=== PATIENT | female | born 1950 | race Caucasian/White ===

== ENCOUNTER 2019-08-27 09:43 | Emergency (ER) | payer SELFPAY ==
--- NOTE | 2019-08-27 09:58 | ED ---
Lower Extremity - HPI Summary HPI Summary: This pt is a 68 y/o female presenting to [facility] via EMS c/o right knee pain s/p mechanical fall today. Pt reports she was walking from her car to her office at [facility] this morning when she slipped on ice and fell on her right knee. Denies head strike or LOC. Pt notes her pain is located on her right knee cap and has decreased ROM of right knee secondary to pain. Denies neck pain, hip pain, back pain. Her pain is currently rated 4/10 in severity. PMHx: left leg fracture. - History of Current Complaint Chief Complaint: EDExtremityLower Stated Complaint: FALL RIGHT KNEE PAIN Time Seen by Provider: 08/27/19 09:52 Hx Obtained From: Patient Mechanism Of Injury: Blunt Trauma, Fall From A Standing Position Onset of Pain: Immediate Onset/Duration: Still Present Severity Currently: Moderate Pain Intensity: 4 Pain Scale Used: 0-10 Numeric Timing: Constant Location: Is Discrete @ - right knee Associated Signs And Symptoms: Positive: Negative, Knee Pain - right Aggravating Factor(s): Nothing Alleviating Factor(s): Nothing - Allergies/Home Medications Allergies/Adverse Reactions: Allergies Allergy/AdvReac Type Severity Reaction Status Date / Time No Known Allergies Allergy Verified 08/27/19 09:47 PMH/Surg Hx/FS Hx/Imm Hx Endocrine/Hematology History: Denies: Hx Diabetes Cardiovascular History: Denies: Hx Hypertension Musculoskeletal History: Reports: Hx of Fracture(s) - left leg - Surgical History Surgical History: Yes Surgery Procedure, Year, and Place: left leg surgery Infectious Disease History: No Infectious Disease History: Denies: Traveled Outside the [place] in Last 30 Days - Family History Known Family History: Positive: Cardiac Disease - mother and father with fatal CHF Family History: Brother with DM and alzheimer's - Social History Alcohol Use: Occasionally Substance Use Type: Reports: None Smoking Status (MU): Never Smoked Tobacco Review of Systems Negative: Fever, Chills Musculoskeletal: Other - POSITIVE: right knee pain Positive: Decreased ROM - right knee. Negative: Other - NEGATIVE: neck pain, hip pain, back pain Negative: Headache All Other Systems Reviewed And Are Negative: Yes Physical Exam - Summary Physical Exam Summary: GENERAL: Patient is a well-developed and nourished female who is lying comfortable in the stretcher. Patient is not in any acute respiratory distress. HEAD AND FACE: No signs of trauma. No ecchymosis, hematomas or skull depressions. No sinus tenderness. EYES: PERRLA, EOMI x 2, No injected conjunctiva, no nystagmus. EARS: Hearing grossly intact. Ear canals and tympanic membranes are within normal limits. MOUTH: Oropharynx within normal limits. NECK: Supple, trachea is midline, no adenopathy, no JVD, no carotid bruit, no c- spine tenderness, neck with full ROM. CHEST: Symmetric, no tenderness at palpation LUNGS: Clear to auscultation bilaterally. No wheezing or crackles. CVS: Regular rate and rhythm, S1 and S2 present, no murmurs or gallops appreciated. ABDOMEN: Soft, non-tender. No signs of distention. No rebound no guarding, and no masses palpated. Bowel sounds are normal. EXTREMITIES: RLE: decreased ROM on right knee. No deformity. Good pulses. Good capillary refill. NEURO: Alert and oriented x 3. No acute neurological deficits. Speech is normal and follows commands. SKIN: Dry and warm Triage Information Reviewed: Yes Vital Signs On Initial Exam: Initial Vitals Temp Pulse Resp BP Pulse Ox 99 F 84 18 184/91 93 08/27/19 09:48 08/27/19 09:48 08/27/19 09:48 08/27/19 09:48 08/27/19 09:48 Vital Signs Reviewed: Yes Procedures - Sedation Patient Received Moderate/Deep Sedation with Procedure: No Diagnostics - Vital Signs Vital Signs Temp Pulse Resp BP Pulse Ox 08/27/19 09:48 99 F 84 18 184/91 93 - Laboratory Lab Statement: Any lab studies that have been ordered have been reviewed, and results considered in the medical decision making process. - Radiology Right knee XR Radiology Interpretation Completed By: Radiologist Summary of Radiographic Findings: IMPRESSION: Transversely oriented complex fracture through the patella with [address] Randall has reviewed this report. - CT Right lower extremity CT CT Interpretation Completed By: Radiologist Summary of CT Findings: IMPRESSION: #. Comminuted intra-articular fracture of the patella with dominant transverse fracture. plane at the midpole and significant comminution of the inferior pole segment. #. Up to 2 cm cephalocaudal distraction between the superior and inferior fracture. fragments. Associated laxity in contour of the quadriceps and patellar tendons. #. 2.5 x 1.6 x 1.1 cm significantly rotated fracture fragment intervenes between the. remaining superior and inferior fragments of the displaced fracture. #. Negative for fracture of the visualized femur, tibia, or fibula. Bone density appears. decreased throughout. #. Associated lipohemarthrosis and anterior subcutaneous tissue plane infiltrative. hematoma. #. Suggestion of a solitary punctate focus of subcutaneous emphysema anteriorly; correlate for anterior soft tissue laceration. No conspicuous foreign body evident. Dr. Randall has reviewed this report. Lower Extremity Course/Dx - Course Assessment/Plan: This pt is a 68 y/o female presenting to [facility] via EMS c/o right knee pain s/p mechanical fall today. Pt reports she was walking from her car to her office at [facility] this morning when she slipped on ice and fell on her right knee. Denies head strike or LOC. Pt notes her pain is located on her right knee cap and has decreased ROM of right knee secondary to pain. Denies neck pain, hip pain, back pain. Her pain is currently rated 4/10 in severity. Patient declined pain medications. X-ray of the right knee impression: Positive patellar fracture. I discussed the case with and Dr. Yao from orthopedics. He recommends for the patient to get a knee CT and place the patient in a knee immobilizer as well as crutches. Patient will be discharged home with follow-up from orthopedics tomorrow. Patient was instructed to return to the emergency department if she develops increasing pain , swelling, or any other symptoms. She understands and agrees. - Diagnoses Differential Diagnosis/HQI/PQRI: Positive: Contusion, Fracture (Closed), Sprain , Strain Provider Diagnoses: Patellar fracture - Physician Notifications Discussed Care Of Patient With: Freddy Yao Time Discussed With Above Provider: 12:33 Instructed by Provider To: Other - Discussed with Dr. Yao, orthopedist, who recommends obtaining a CT, placing a knee immobilizer, and discharging the pt home with follow up tomorrow at his office. Discharge ED - Sign-Out/Discharge Documenting (check all that apply): Patient Departure - Discharge home - Discharge Plan Condition: Stable Disposition: HOME Prescriptions: HYDROcodone/ACETAMIN 5-325 MG* [[place] 5-325 TAB*] 1 tab PO Q6H PRN #10 tab MDD 4 PRN Reason: Pain - Moderate Patient Education Materials: Patellar Fracture (ED) Referrals: Cindy Ward MD [Primary Care Provider] - Freddy Yao MD [Medical Doctor] - Additional Instructions: Follow up with Dr. Yao, orthopedist, tomorrow. FOLLOW UP WITH YOUR PRIMARY CARE PROVIDER IN 2-3 DAYS. RETURN TO THE EMERGENCY DEPARTMENT FOR ANY WORSENING OR NEW SYMPTOMS. - Billing Disposition and Condition Condition: STABLE Disposition: Home - Attestation Statements Document Initiated by Lulúibe: Yes Documenting Scribe: Emely Steward Provider For Whom Lulúibe is Documenting (Include Credential): Alen Randall MD Scribe Attestation: IEmely, scribed for Alen Randall MD on 08/28/19 at 1840. Scribe Documentation Reviewed: Yes Provider Attestation: The documentation as recorded by the Emely sarah accurately reflects the service I personally performed and the decisions made by me, Alen Randall MD Status of Scribe Document: Viewed
[2019-08-27] MEDS ORDERED: HYDROcodone/ACETAMIN 5-325 MG* 1 TAB PO ONE (14:16)
[2019-08-27 14:35] VITALS: BP 157/110
== END 2019-08-27 14:34 | disposition home or self-care (01) ==
LOC: ED 09:43
DX: S82.041A Displaced comminuted fracture of right patella, initial encounter for closed fracture (principal); W00.0XXA Fall on same level due to ice and snow, initial encounter; Y92.9 Unspecified place or not applicable
CPT/HCPCS: 99283

== ENCOUNTER → 2019-08-29 13:43 | Day surgery (SDC) | payer OTHER ==
[~2019-08-29 13:43] MED LIST: Buffered Lidocaine 1% SYRIN* 1 ML/SYRINGE INTRADERM ONE; Dexamethasone IV* 4 MG/ML 1 ML (4 MG) ONE; Dexamethasone TAB* 4 MG PO ONE; Famotidine IV* 10 MG/ML 2 ML (20 mg) IV ONE; Famotidine IV* 10 MG/ML 2 ML (20 mg) ONE; Lactated Ringers 1000 ML Bag* 1,000 ML IV SCH; Ondansetron ODT TAB* 4 MG ONE; Ondansetron ODT TAB* 4 MG PO ONE; ceFAZolin 2 GM PREMIX in ORs 2 GM/50 ML BAG ONE
[2019-08-29 14:47] VITALS: BP 169/96
== END | disposition home or self-care (01) ==
LOC: OR 13:43
PROVIDERS: ATTEND Orthopaedic Surgery
DX: S82.001A Unspecified fracture of right patella, initial encounter for closed fracture (principal); Z53.8 Procedure and treatment not carried out for other reasons; X58.XXXA Exposure to other specified factors, initial encounter; Y92.9 Unspecified place or not applicable
CPT/HCPCS: A9270-GY; J0690; J1100

== ENCOUNTER 2019-09-04 07:44 | Day surgery (SDC) | payer OTHER ==
[~2019-09-04 07:44] MED LIST changes: +Dexamethasone IV* 4 MG/ML 1 ML (4 MG) IV SLOW PU ONE; -Dexamethasone IV* 4 MG/ML 1 ML (4 MG) ONE; -Dexamethasone TAB* 4 MG PO ONE; -Famotidine IV* 10 MG/ML 2 ML (20 mg) ONE; -Ondansetron ODT TAB* 4 MG ONE; -Ondansetron ODT TAB* 4 MG PO ONE; +Scopolamine 1.5 mg* PATCH TRANSDERM ONE; -ceFAZolin 2 GM PREMIX in ORs 2 GM/50 ML BAG ONE
[2019-09-04] MEDS ORDERED: ceFAZolin 2 GM PREMIX in ORs 2 GM/50 ML BAG ONE (08:12)
[2019-09-04] MEDS ORDERED: Dexamethasone IV* 4 MG/ML 1 ML (4 MG) ONE (08:12)
[2019-09-04] MEDS ORDERED: Scopolamine 1.5 mg* PATCH ONE (08:12)
[2019-09-04] MEDS ORDERED: Famotidine IV* 10 MG/ML 2 ML (20 mg) ONE (08:12)
[2019-09-04] MEDS ORDERED: fentaNYL* 50 MCG/ML 2 ML VIAL (100 MCG VIAL) ONE ×3 (10:48→12:53)
[2019-09-04] MEDS ORDERED: Lidocaine 2% PF * 5 ML VIAL ONE (10:48)
[2019-09-04] MEDS ORDERED: Midazolam* 1 MG/ML 2 ML VIAL (2 MG) ONE (10:48)
[2019-09-04] MEDS ORDERED: KETAMINE HCL* 50 MG/ML 10 ML VIAL ONE (11:03)
[2019-09-04] MEDS ORDERED: Bupivacaine 0.5%* 50 ML MDV VIAL ONE (11:29)
[2019-09-04] MEDS ORDERED: Naloxone* 0.4 MG/ML 1 ML VIAL IV PRN (11:31)
[2019-09-04] MEDS ORDERED: HYDROcodone/ACETAMIN 5-325 MG* 1 TAB PO PRN (11:31)
[2019-09-04] MEDS ORDERED: PROCHLORPERAZINE INJ 5 MG/ML 2 ML VIAL IV PRN (11:31)
[2019-09-04] MEDS ORDERED: Ondansetron INJ* 2 MG/ML VIAL ONE (11:49)
[2019-09-04] MEDS: fentaNYL* 50 MCG/ML 2 ML VIAL (100 MCG VIAL) IV PRN ×4 (12:25→13:29)
[2019-09-04] MEDS ORDERED: Labetalol IV* 5 MG/ML 20 ML VIAL ONE (12:41)
[2019-09-04] MEDS: Labetalol IV* 5 MG/ML 20 ML VIAL IV PUSH PRN ×4 (12:44→13:22)
--- NOTE | 2019-09-04 13:12 | OP ---
Operative Report - Blank - Operative Report Date of Operation: 09/04/19 Note: PATIENT: Awilda Sanz DATE OF : 1950 DATE OF SURGERY: 09/04/2019 SURGEON: Freddy Yao MD MAINTENANCE SHOP MANAGER: JESE Wu, whos assistance was necessary for positioning, retraction, help with instrumentation, and closure. ANESTHESIOLOGIST: Dr. Diaz PREOPERATIVE DIAGNOSIS: Comminuted, displaced right patella fracture POSTOPERATIVE DIAGNOSIS: Comminuted, displaced right patella fracture OPERATION: Open treatment of right patella fracture with partial patellectomy ANESTHESIA: General IMPLANTS: None TOURNIQUET TIME: None SPECIMENS: none ESTIMATED BLOOD LOSS: 25cc COMPLICATIONS: none STATUS: Stable from the operating room to the recovery room and then home. INDICATIONS FOR PROCEDURE: Awilda sustained the above injury. Both operative and non-operative treatment alternatives were reviewed, including both ORIF and partial patellectomy. Further, the nature and risks of surgery were reviewed in careful detail, in the office as well as the pre-operative holding area. Our discussions regarding the risks of surgery included, but were not limited to, infection, wound problems, nerve injury, neuroma, RSD, persistent symptoms, blood clot, failure of the surgery, and even the remote chance of catastrophic complication. DESCRIPTION OF PROCEDURE: The patient was seen in the preoperative holding unit and informed written consent was obtained. The appropriate extremity was marked. The patient was then brought to the operating room and carefully positioned on the operating room table. Anesthesia was induced. All bony prominences were padded with great care. A well-padded thigh tourniquet was placed. A chlorhexidine based pre- scrub was performed followed by a chloraprep prep and drape in standard sterile fashion. A surgical safety pause was then conducted in which we confirmed the appropriate patient, extremity, planned procedure, availability of equipment, indication and administration of prophylactic antibiotics, and DVT prophylaxis in the form of a compression boot on the non-surgical extremity. A longitudinal midline incision was made, centered over the patella. Dissection was carried down to the level of the patella. The fracture sites were exposed and fracture hematoma was cleared. There was significant comminution distally. There were 4 separate fracture fragments distally, the largest of which was devoid of any soft tissue attachments. I exposed the fracture planes but decided that reduction and internal fixation would be difficult and likely to fail, given the comminution. Therefore, elected to move forward with a partial patellectomy, as we had discussed preoperatively. The distal fracture fragments were excised. I then used #[address] a Krakw sutures into the patellar tendon. This is done medially and laterally , so there were 4 limbs. I then used a #2 fiber wire to whipstitch the medial and lateral sides of the patellar tendon and another #2 fiber wire to whipstitch the medial lateral sides of the quadriceps tendon. I then used a Beath pin to make 3 bone tunnels through the remaining proximal patella. The 4 limbs from the Krakw sutures were then pulled through the bone tunnels proximally. The leg was held in full extension and the sutures were tied proximally, nicely approximating the patellar tendon to the inferior pole of the remaining patella. I then tied the whipstitched sutures from the quadriceps tendon to the whipstitched sutures from the patellar tendon to reinforce the patellar tendon repair. I then used #1 Vicryl sutures to perform a patellar retinaculum repair both medially and laterally. I then ranged the knee and there was no gapping appreciated up to 60. The wound was copiously irrigated throughout the procedure and then closed in a layered fashion utilizing #1 Vicryl, 3-0 Monocryl and skin tori. A sterile dressing was then applied followed by a knee immobilizer in extension. The patient was then awakened from anesthesia and transferred to the recovery room in stable condition. There were no complications. All needle and sponge counts were correct at the end of the case. ATTESTATION: I attest I was present and scrubbed and performed the critical portions of the procedure myself. POSTOPERATIVE PLAN: The patient will be nonweightbearing in the knee immobilizer at all times. She will followup in 2 weeks for likely staple removal. We will use aspirin for DVT prophylaxis.
[2019-09-04] MEDS ORDERED: oxyCODONE/Acetamin 5/325 MG* TAB ONE (13:24)
[2019-09-04] MEDS: oxyCODONE/Acetamin 5/325 MG* TAB PO PRN ×2 (13:25→13:27)
[2019-09-04 14:35] VITALS: BP 159/73
[2019-09-07] MEDS ORDERED: Scopolamine PATCH Remove* 1 NOTE MISC PATCH OFF ONE (06:00)
== END 2019-09-04 14:45 | disposition home or self-care (01) ==
LOC: OR 07:44
PROVIDERS: ATTEND Orthopaedic Surgery
DX: S82.001A Unspecified fracture of right patella, initial encounter for closed fracture (principal); W00.2XXA Other fall from one level to another due to ice and snow, initial encounter; Y92.480 Sidewalk as the place of occurrence of the external cause; Y99.0 Civilian activity done for income or pay; I10 Essential (primary) hypertension; E78.5 Hyperlipidemia, unspecified
CPT/HCPCS: 76000; A9270-GY; J0690; J1100; J2250; J2405; J3010; J3490